=== PATIENT | female | born 1995 | race Hispanic/Latino ===

== ENCOUNTER 2021-12-14 08:25 | Observation (INO) | payer MEDICAID ==
[2021-12-12 13:11] LABS: BASOPHILS % (AUTO) 0.3 % (0.0-5.0); EOSINOPHILS % (AUTO) 0.8 % (0.0-8.0); HEMATOCRIT 39.7 % (36-48); LYMPHOCYTES % (AUTO) 32.2 % (21.0-51.0); MEAN CORPUSCULAR HEMOGLOBIN 28.2 pg (27.0-33.0); MEAN CORPUSCULAR HGB CONC 31.5 g/dL (32.0-36.0); MEAN CORPUSCULAR VOLUME 89.6 fL (79-99); MONOCYTES % (AUTO) 5.7 % (3.0-13.0); NEUTROPHILS % (AUTO) 60.8 % (40.0-77.0); PLATELET COUNT (AUTO) 266 K/uL (130-400); RED BLOOD CELL COUNT(AUTO) 4.43 MIL/uL (4.00-5.50); RED CELL DISTRIBUTION WIDTH 13.1 % (11.0-15.5); WHITE BLOOD COUNT (AUTO) 6.3 K/uL (4.8-10.8)
[2021-12-12 13:23] LABS: CREATININE 0.6 mg/dL (0.5-1.5); INR 0.95 (0.85-1.15); POTASSIUM 4.3 mmol/L (3.5-5.1); PROTHROMBIN TIME 10.4 SEC (9.6-11.6)
[2021-12-12 13:25] LABS: PARTIAL THROMBOPLASTIN TIME 27.1 SEC (26.3-35.5)
[2021-12-13 11:39] VITALS: BP 112/61
[~2021-12-14] VITALS: Ht 160 cm; Wt 50.3 kg
[2021-12-14] VITALS (25 sets, daily range): BP systolic 72–116; BP diastolic 21–72
[~2021-12-14 08:25] MED LIST: 0.9%NACL 1000ML 1,000 ML IV SCH; DILT120C92 PO; LORA2TAB80 PO
[2021-12-14] MEDS ORDERED: LIDOCAINE HCL 400MG/20ML VIAL ONE (13:16)
[2021-12-14] MEDS ORDERED: HEPARIN 10,000 UNIT/10ML (1,000 UNIT/ML) VIAL ONE (13:16)
[2021-12-14] MEDS ORDERED: MIDAZOLAM HCL 1 MG/ML 2ML VIAL ONE ×5 (13:17→16:45)
[2021-12-14] MEDS ORDERED: MEPERIDINE-PF 25 MG/ML SYG ONE (13:18)
[2021-12-14] MEDS ORDERED: FENTANYL CITRATE PF 50 MCG/1 ML 2ML VIAL ONE ×2 (13:38→16:40)
[2021-12-14] MEDS ORDERED: DiphenhydrAMINE HCL 50 MG/ML VIAL ONE (14:25)
[2021-12-14] MEDS ORDERED: ISOPROTERENOL HCL 0.2 MG/ML AMP/VIAL/BAG ONE (15:03)
[2021-12-14] MEDS ORDERED: PROPOFOL 1000 MG/100 ML 100 ML IV ONE (15:22)
[2021-12-14] MEDS ORDERED: FAMOTIDINE 20MG VIAL IV ONE (15:22)
[2021-12-14] MEDS ORDERED: PHENYLEPHRINE HCL 10 MG/ML 1ML VIAL IV ONE (15:46)
[2021-12-14] MEDS ORDERED: MIDAZOLAM HCL 1 MG/ML 2ML VIAL IV ONE (16:00)
[2021-12-14] MEDS ORDERED: PROPOFOL 10 MG/ML 20ML VIAL IV ONE ×2 (16:59→17:40)
[2021-12-14] MEDS ORDERED: ONDANSETRON 4MG INJ IVP PRN (22:00)
[2021-12-15 00:20] VITALS: BP 93/59
[2021-12-15 01:20] VITALS: BP 92/53
[2021-12-15 03:46] VITALS: BP 96/54
[2021-12-15 07:00] VITALS: BP 102/62
[2021-12-15 14:40] VITALS: BP 106/78
== END 2021-12-15 14:45 | disposition home or self-care (01) ==
LOC: DAH 08:25 → 2DH 08:26
PROVIDERS: ADMIT Internal Medicine Cardiovascular Disease; ATTEND Internal Medicine Cardiovascular Disease
DX: I47.1 Supraventricular tachycardia (principal); F41.9 Anxiety disorder, unspecified; K21.9 Gastro-esophageal reflux disease without esophagitis; Z79.899 Other long term (current) drug therapy
CPT/HCPCS: 36415; 80048; 84703; 85025; 85610; 85730; 93005 ×2; 93623; 93653; A4215; A4216; A4221; A4222; A4223 ×3; A4606; A4649 ×2; A4663; C1730 ×4; C1731; C1732; C1893; C1894 ×5; G0378 ×17; J1200; J1644 ×3; J2250 ×6; J2370; J3010 ×2; J3490 ×5; J7030; S0028; 99156; 99157; J2175; J2704

== ENCOUNTER 2021-12-18 15:11 | Emergency (ER) | payer MEDICAID ==
[~2021-12-18] VITALS: Ht 160 cm; Wt 50.3 kg
[~2021-12-18 15:11] MED LIST changes: -0.9%NACL 1000ML 1,000 ML IV SCH; -DILT120C92 PO
[2021-12-18 15:41] LABS: BASOPHILS % (AUTO) 0.3 % (0.0-5.0); EOSINOPHILS % (AUTO) 0.3 % (0.0-8.0); HEMATOCRIT 37.1 % (36-48); MEAN CORPUSCULAR HEMOGLOBIN 28.8 pg (27.0-33.0); MEAN CORPUSCULAR HGB CONC 33.2 g/dL (32.0-36.0); MEAN CORPUSCULAR VOLUME 86.9 fL (79-99); MONOCYTES % (AUTO) 6.5 % (3.0-13.0); NEUTROPHILS % (AUTO) 69.5 % (40.0-77.0); PLATELET COUNT (AUTO) 228 K/uL (130-400); RED BLOOD CELL COUNT(AUTO) 4.27 MIL/uL (4.00-5.50); RED CELL DISTRIBUTION WIDTH 12.7 % (11.0-15.5); WHITE BLOOD COUNT (AUTO) 7.1 K/uL (4.8-10.8)
[2021-12-18 15:49] LABS: CREATININE 0.7 mg/dL (0.5-1.5); POTASSIUM 3.8 mmol/L (3.5-5.1)
[2021-12-18 15:59] LABS: ALBUMIN 3.7 g/dL (3.5-5.0); BILIRUBIN,TOTAL 0.3 mg/dL (0.2-1.0); MAGNESIUM 1.6 mg/dL (1.80-2.40); TOTAL PROTEIN, SERUM 7.6 g/dL (6.0-8.3)
[2021-12-18] MEDS ORDERED: MAGNESIUM OXIDE 400 MG TABLET PO SCH (18:00)
[2021-12-18 18:48] VITALS: BP 103/57
== END 2021-12-18 18:51 | disposition home or self-care (01) ==
LOC: EDH 15:11
DX: E83.42 Hypomagnesemia (principal); R00.0 Tachycardia, unspecified; Z88.5 Allergy status to narcotic agent; Z90.49 Acquired absence of other specified parts of digestive tract
CPT/HCPCS: 36415; 80053; 83735; 84484; 85025; 93005

== ENCOUNTER 2022-01-05 21:35 | Emergency (ER) | payer MEDICAID ==
[~2022-01-05] VITALS: Ht 160 cm; Wt 52.2 kg
[2022-01-05 22:16] LABS: BASOPHILS % (AUTO) 0.4 % (0.0-5.0); EOSINOPHILS % (AUTO) 0.7 % (0.0-8.0); HEMATOCRIT 37.1 % (36-48); LYMPHOCYTES % (AUTO) 39.8 % (21.0-51.0); MEAN CORPUSCULAR HEMOGLOBIN 28.4 pg (27.0-33.0); MEAN CORPUSCULAR HGB CONC 32.9 g/dL (32.0-36.0); MEAN CORPUSCULAR VOLUME 86.5 fL (79-99); MONOCYTES % (AUTO) 10.2 % (3.0-13.0); NEUTROPHILS % (AUTO) 48.7 % (40.0-77.0); PLATELET COUNT (AUTO) 264 K/uL (130-400); RED BLOOD CELL COUNT(AUTO) 4.29 MIL/uL (4.00-5.50); RED CELL DISTRIBUTION WIDTH 13.1 % (11.0-15.5); WHITE BLOOD COUNT (AUTO) 5.7 K/uL (4.8-10.8)
[2022-01-05 22:23] LABS: CREATININE 0.6 mg/dL (0.5-1.5); MAGNESIUM 2.1 mg/dL (1.80-2.40); POTASSIUM 3.6 mmol/L (3.5-5.1)
[2022-01-05 23:11] VITALS: BP 108/65
== END 2022-01-05 23:22 | disposition home or self-care (01) ==
LOC: EDH 21:35
DX: R00.2 Palpitations (principal); M54.6 Pain in thoracic spine; M54.2 Cervicalgia; F41.9 Anxiety disorder, unspecified; Z88.5 Allergy status to narcotic agent; Z90.49 Acquired absence of other specified parts of digestive tract
CPT/HCPCS: 36415; 80048; 83735; 84484; 85025; 93005

== ENCOUNTER → 2023-02-20 | Outpatient (CLI) | payer MEDICAID | END | disposition home or self-care (01) | LOC: SHCH 12:52 | PROVIDERS: ATTEND Internal Medicine Cardiovascular Disease | DX: R00.0 Tachycardia, unspecified (principal) | CPT/HCPCS: 93306 ==

== ENCOUNTER 2023-05-07 09:09 | Day surgery (SDC) | payer MEDICAID ==
[2023-05-07] VITALS (13 sets, daily range): BP systolic 95–114; BP diastolic 52–73; PULSE 57–79; RESP 14–19
[~2023-05-07] VITALS: Ht 160 cm; Wt 65.8 kg
[~2023-05-07 09:09] MED LIST changes: +APIX5TAB PO; +FLUD0.1T2 PO; -LORA2TAB80 PO; +POTA10CA85 PO; +PROP60CA2 PO
[2023-05-07] MEDS ORDERED: PROPOFOL 10 MG/ML 20ML VIAL IV ONE (11:33)
[2023-05-07] MEDS ORDERED: EPHEDRINE SULFATE 50 MG/ML AMPULE ONE (11:33)
[2023-05-07] MEDS ORDERED: MIDAZOLAM HCL 1 MG/ML 2ML VIAL ONE (11:34)
[2023-05-07] MEDS ORDERED: GLYCOPYRROLATE 1 MG/5 ML SYRINGE ONE (11:34)
== END 2023-05-07 13:15 | disposition home or self-care (01) ==
LOC: ENDO 09:09 → DAH 09:09 → ENDO 13:15
PROVIDERS: ATTEND Internal Medicine Gastroenterology
DX: R10.12 Left upper quadrant pain (principal); R14.0 Abdominal distension (gaseous); R13.10 Dysphagia, unspecified; K29.50 Unspecified chronic gastritis without bleeding; K21.00 Gastro-esophageal reflux disease with esophagitis, without bleeding; D50.9 Iron deficiency anemia, unspecified; K76.0 Fatty (change of) liver, not elsewhere classified; I51.9 Heart disease, unspecified; Z79.899 Other long term (current) drug therapy; Z79.01 Long term (current) use of anticoagulants; Z90.49 Acquired absence of other specified parts of digestive tract; Z98.890 Other specified postprocedural states
CPT/HCPCS: 81025; 43239; J3490 ×3; J2250; A4620; A4215 ×2; A4223; A7002; A4222; A4221; A4663; A4216; J7030; A4606; J2704

== ENCOUNTER 2023-06-02 17:36 | Emergency (ER) | payer MEDICAID ==
[~2023-06-02] VITALS: Ht 160 cm; Wt 64.9 kg
[2023-06-02 18:29] LABS: BASOPHILS # (AUTO) 0.02 K/uL (0.00-0.20); BASOPHILS % (AUTO) 0.3 % (0.0-5.0); EOSINOPHILS # (AUTO) 0.02 K/uL (0.00-0.70); EOSINOPHILS % (AUTO) 0.3 % (0.0-8.0); HEMATOCRIT 35.5 % (36-48); IMMATURE GRANULOCYTE ABSOLUTE 0.01 K/uL (0-1); LYMPHOCYTES # (AUTO) 1.6 K/uL (1.0-4.8); LYMPHOCYTES % (AUTO) 26.4 % (21.0-51.0); MEAN CORPUSCULAR HEMOGLOBIN 29.2 pg (27.0-33.0); MEAN CORPUSCULAR HGB CONC 33.5 g/dL (32.0-36.0); MEAN CORPUSCULAR VOLUME 87.2 fL (79-99); MONOCYTES # (AUTO) 0.3 K/uL (0.1-1.0); NEUTROPHILS # (AUTO) 4.1 K/uL (1.8-7.7); NEUTROPHILS % (AUTO) 67.8 % (40.0-77.0); PLATELET COUNT (AUTO) 300 K/uL (130-400); RED BLOOD CELL COUNT(AUTO) 4.07 MIL/uL (4.00-5.50)
[2023-06-02 18:39] LABS: CREATININE 0.8 mg/dL (0.5-1.5); POTASSIUM 3.4 mmol/L (3.5-5.1)
[2023-06-02 18:44] LABS: BILIRUBIN,TOTAL 0.3 mg/dL (0.2-1.0)
[2023-06-02] MEDS ORDERED: POTASSIUM BICARB/CIT AC 25 MEQ TABLET.EFF PO ONE (19:00)
[2023-06-02 19:08] LABS: ADD UA MICROSCOPIC YES; APPEARANCE,URINE CLEAR (CLEAR); BILIRUBIN,URINE NEGATIVE (NEGATIVE); COLOR,URINE LIGHT-YELLOW (YELLOW); GLUCOSE, URINE (UA) NEGATIVE (NEGATIVE); KETONES,URINE 10 mg/dL (NEGATIVE); LEUKOCYTE ESTERASE ,URINE NEGATIVE Leu/uL (NEGATIVE); NITRATE,URINE NEGATIVE (NEGATIVE); OCCULT BLOOD,URINE SMALL (NEGATIVE); PH,URINE 6.5 (5.0-8.0); PROTEIN,URINE NEGATIVE (NEGATIVE); UROBILINOGEN,URINE 0.2 mg/dL (0.2-1.0)
[2023-06-02 19:11] LABS: BACTERIA,URINE RARE /HPF (None Seen); MUCUS,URINE RARE LPF (None Seen); SQUAMOUS EPITHELIAL CELL,UR MOD /HPF (0-2); WBC,URINE 0-1 /HPF (0-1)
[2023-06-02 19:16] LABS: HCG,QUALITATIVE URINE NEGATIVE (NEGATIVE)
[2023-06-02 19:37] VITALS: BP 127/62; PULSE 90; RESP 16; O2SAT 99
[2023-06-02] MEDS ORDERED: FLUT16H NASAL (20:30)
[2023-06-02] MEDS ORDERED: AZIT250T9 PO (20:30)
[2023-06-02] MEDS ORDERED: ACETAMINOPHEN 500 MG TABLET PO ONE (21:00)
== END 2023-06-02 21:21 | disposition home or self-care (01) ==
LOC: EDH 17:41
DX: G43.909 Migraine, unspecified, not intractable, without status migrainosus (principal); J01.90 Acute sinusitis, unspecified; Z79.899 Other long term (current) drug therapy; Z98.890 Other specified postprocedural states; Z90.49 Acquired absence of other specified parts of digestive tract; Z88.8 Allergy status to other drugs, medicaments and biological substances
CPT/HCPCS: 36415; 71045; 80053; 81001; 81025; 84484; 85025; 93005

== ENCOUNTER → 2023-11-03 | Outpatient (CLI) | payer MEDICAID ==
[~2023-11-03] MED LIST changes: +AZIT250T9 PO; +FLUT16H NASAL; -POTA10CA85 PO; +POTA10CA95 PO
== END | disposition home or self-care (01) ==
LOC: SHCH 09:18
PROVIDERS: ATTEND Internal Medicine Cardiovascular Disease
DX: R00.2 Palpitations (principal); R20.2 Paresthesia of skin; R51.9 Headache, unspecified; Z79.899 Other long term (current) drug therapy
CPT/HCPCS: 93880

== ENCOUNTER → 2024-01-28 | Outpatient (CLI) | payer MEDICAID ==
[~2024-01-28] MED LIST changes: +IOHEXOL 350 MG/ML 100ML INFUS..BTL IV ONE
== END | disposition home or self-care (01) ==
LOC: RAH 13:17
PROVIDERS: ATTEND Internal Medicine Cardiovascular Disease
DX: I47.10 Supraventricular tachycardia, unspecified (principal)
CPT/HCPCS: 75574; Q9967

== ENCOUNTER 2024-08-13 12:18 | Emergency (ER) | payer MEDICAID ==
[~2024-08-13] VITALS: Ht 160 cm; Wt 74.4 kg
[~2024-08-13 12:18] MED LIST changes: -IOHEXOL 350 MG/ML 100ML INFUS..BTL IV ONE
--- NOTE | 2024-08-13 13:12 | EKG ---
[facility] [place] Test Date: 2024-08-13 Test Time: 12:50:55 Pat Name: GT LAWSON Department: ED Room: Gender: F Nursing Aide: [id number] : 1995 Requested By: KATIE ROSALES Order Number: [id number] Reading MD: Sherry Chester Measurements Intervals [place] Rate: 99 P: 55 ME: 144 QRS: 16 QRSD: 75 T: 37 QT: 336 QTc: 432 Interpretive Statements Sinus rhythm Compared to ECG 06/02/2023 18:24:31 No significant changes Electronically Signed On 08-14-2024 08:45:51 SLITTER PROCESSED FILM by Sherry Chester Please click the below link to view image of tracing.
[2024-08-13] MEDS: 0.9%NACL 1000ML 1,000 ML IV ONE (13:16)
[2024-08-13 13:42] LABS: BASOPHILS # (AUTO) 0.02 K/uL (0.00-0.20); BASOPHILS % (AUTO) 0.2 % (0.0-5.0); EOSINOPHILS # (AUTO) 0.03 K/uL (0.00-0.70); EOSINOPHILS % (AUTO) 0.4 % (0.0-8.0); HEMATOCRIT 33.5 % (36-48); IMMATURE GRANULOCYTE ABSOLUTE 0.13 K/uL (0-1); LYMPHOCYTES # (AUTO) 1.3 K/uL (1.0-4.8); MEAN CORPUSCULAR HEMOGLOBIN 30.4 pg (27.0-33.0); MEAN CORPUSCULAR HGB CONC 33.4 g/dL (32.0-36.0); MEAN CORPUSCULAR VOLUME 90.8 fL (79-99); MONOCYTES # (AUTO) 0.5 K/uL (0.1-1.0); MONOCYTES % (AUTO) 5.6 % (3.0-13.0); NEUTROPHILS # (AUTO) 6.2 K/uL (1.8-7.7); NEUTROPHILS % (AUTO) 76.2 % (40.0-77.0); NUCLEATED RED BLOOD CELLS 0.2 % (0.0-0.19); PLATELET COUNT (AUTO) 266 K/uL (130-400); RED BLOOD CELL COUNT(AUTO) 3.69 MIL/uL (4.00-5.50); RED CELL DISTRIBUTION WIDTH 14.8 % (11.0-15.5); WHITE BLOOD COUNT (AUTO) 8.2 K/uL (4.8-10.8)
[2024-08-13 13:51] LABS: CARBON DIOXIDE 26 mmol/L (21-32); CHLORIDE 104 mmol/L (101-111); CREATININE 0.4 mg/dL (0.5-1.0); GLOMERULAR FILTR. RATE CALC 140 mL/min (>90); GLUCOSE,RANDOM 94 mg/dL (70-105); POTASSIUM 3.8 mmol/L (3.5-5.1); SODIUM SERUM 137 mmol/L (136-145); UREA NITROGEN, BLOOD 5 mg/dL (7-18)
[2024-08-13 13:57] LABS: CREATINE KINASE, TOTAL 15 U/L (21-232)
--- NOTE | 2024-08-13 13:57 | ERN ---
General Chief Complaint: Palpitations Stated Complaint: FAST HEART RATE Time Seen by MD: 12:19 History of Present Illness Initial Comments 28-year-old female, history of pulmonary embolism in the past, history of SVT, presents for episode of tachycardia. She is 26 weeks , . Patient was in the imaging center attached this facility pending an echocardiogram in the waiting room, she felt a sudden onset of tachycardia and dizziness with near syncope. She found that her heart rate was 160 by self recording. The episode has since resolved. She comes here without complaint for evaluation. She takes propranolol 80 mg extended release daily. She also takes Lovenox injections. She denies any recent fevers, chills, chest pains, dyspnea, vomiting, abdominal pain diarrhea or dysuria. Allergies: Coded Allergies: meperidine (Verified Allergy, Unknown, 12/12/21) metoclopramide (Verified Allergy, Unknown, 12/12/21) shellfish derived (Unverified Allergy, Unknown, 05/07/23) Home Meds Active Scripts Fluticasone Propionate (Flonase Nasal [place]) 50 Mcg/Actuation [place], 50 MCG NASAL DAILY PRN for NASAL CONGESTION for 10 Days, #1 SPRAY Prov:SIMONE LANDIS 06/02/23 Azithromycin (Azithromycin) 250 Mg Tablet, 250 MG PO DAILY, #6 TAB Take 2 now then 1 daily until complete. Prov:SIMONE LANDIS 06/02/23 Reported Medications Potassium Chloride (Potassium Chloride) 10 Meq Capsule.er, 10 MEQ PO BID, CAP 05/06/23 Fludrocortisone Acetate (Fludrocortisone Acetate) 0.1 Mg Tablet, 0.1 MG PO BID, TAB 05/06/23 Propranolol HCl (Propranolol HCl) 60 Mg Cap.sa.24h, 60 MG PO DAILY 05/06/23 Apixaban (Eliquis) 5 Mg Tablet, 5 MG PO BID, TAB 05/06/23 Past Medical History Past Medical History: Other Medical History Other: SVT, POTS,TACHYCARDIA Past Surgical History: Cholecystectomy Surgical History Other: HEART ABLASION, LIVER RESECTION Social History Social History: Negative, Other Female( History) : 4 Para: 1 Aborts: 2 ROS Dictation CONSTITUTIONAL: No chills, no fever, no weakness, no diaphoresis, no malaise. HEAD/FACE: No signs of trauma. EENT: No eye pain, no blurred vision, no tearing, no double vision, no ear pain, no ear discharge, no nose pain, no nasal congestion, no throat pain, no throat swelling, no mouth pain. RESPIRATORY: No cough, no orthopnea, no SOB, no stridor, no wheezing. CARDIOVASCULAR: Palpitations. GASTROINTESTINAL/ABDOMINAL: No abdominal pain, no constipation, no diarrhea, no nausea, no vomiting. GENITOURINARY: No abnormal discharge, no dysuria, no frequent urination, no hematuria. No complaints of pain in the genitals. MUSCULOSKELETAL: No back pain, no gout, no joint pain, no joint swelling, no muscle pain, no muscle stiffness, no neck pain. INTEGUMENTARY: No change in color, no change in hair/nails, no dryness, no lesion, no lumps, no rash. NEUROLOGICAL/PSYCH: No anxiety, not depressed, no emotional problem, no he adache, no numbness, no pre-existing deficit, no history of seizures, no tremors, no weakness. HEMATOLOGIC/LYMPHATIC: Not anemic, no history of blood clots, no apparent bleeding, no bruising, glands not swollen. All Systems Negative, Except as Noted. Physical Exam Physical Exam Dictation VITAL SIGNS: Reviewed. GENERAL APPEARANCE: Alert, oriented x3, no acute distress HEAD AND FACE: Non-traumatic. EYES: PERRL, pink conjunctivas, eyelid no trauma, anterior chamber clear. EARS: Pinnas intact and no signs of trauma or erythema. Ear canals clear and no discharge. TMs no erythema. NOSE: No discharge, no bleeding. OROPHARYNX: Mouth normal, teeth no caries, tongue pink. Pharynx clear, no erythema. Tonsils no exudates, no abscesses noted. Mucous membrane moist. NECK: Supple, non-tender, no thyromegaly, no masses, no JVD, no bruits. BREAST: Deferred. CHEST: No tenderness, no crepitus, no paradoxical movement, no retractions. LUNGS: Clear, well-ventilated, symmetric, no rales, no wheezing, no rhonchi, no stridor, good breath sounds bilaterally. HEART: Regular rate, regular rhythm, no murmur, no gallops. VASCULAR: No peripheral edema. ABDOMEN: Soft, positive bowel sounds, nondistended, no guarding, nontender, no rebound, no masses no hepatomegaly, no splenomegaly, no Mehta's sign, no hernias. RECTAL: Deferred. GENITAL: Deferred. NEUROLOGICAL: Normal speech, gross motor function intact, gross sensory function intact. MUSCULOSKELETAL: Neck nontender, full range of motion, back nontender, full range of motion. EXTREMITIES: Nontender, full range of motion. SKIN: Color pink, dry, no turgor, no rash, no lacerations, no abrasions, no contusions. LYMPHATICS: Deferred. Results Laboratory and Microbiology Lab and Micro Result Laboratory Tests Test 08/13/24 12:54 White Blood Count 8.2 K/uL (4.8-10.8) Red Blood Count 3.69 MIL/uL (4.00-5.50) L Hemoglobin 11.2 g/dL (12.0-16.0) L Hematocrit 33.5 % (36-48) L Mean Corpuscular Volume 90.8 fL (79-99) Mean Corpuscular Hemoglobin 30.4 pg (27.0-33.0) Mean Corpuscular Hemoglobin Concent 33.4 g/dL (32.0-36.0) Red Cell Distribution Width 14.8 % (11.0-15.5) Platelet Count 266 K/uL (130-400) Mean Platelet Volume 9.1 fL (7.5-10.5) Immature Granulocyte % (Auto) 1.6 % (0-1) H Neutrophils (%) (Auto) 76.2 % (40.0-77.0) Lymphocytes (%) (Auto) 16.0 % (21.0-51.0) L Monocytes (%) (Auto) 5.6 % (3.0-13.0) Eosinophils (%) (Auto) 0.4 % (0.0-8.0) Basophils (%) (Auto) 0.2 % (0.0-5.0) Neutrophils # (Auto) 6.2 K/uL (1.8-7.7) Lymphocytes # (Auto) 1.3 K/uL (1.0-4.8) Monocytes # (Auto) 0.5 K/uL (0.1-1.0) Eosinophils # (Auto) 0.03 K/uL (0.00-0.70) Basophils # (Auto) 0.02 K/uL (0.00-0.20) Absolute Immature Granulocyte (auto 0.13 K/uL (0-1) Nucleated Red Blood Cells 0.2 % (0.0-0.19) H Sodium Level 137 mmol/L (136-145) Potassium Level 3.8 mmol/L (3.5-5.1) Chloride Level 104 mmol/L (101-111) Carbon Dioxide Level 26 mmol/L (21-32) Blood Urea Nitrogen 5 mg/dL (7-18) L Creatinine 0.4 mg/dL (0.5-1.0) L Glomerular Filtration Rate Calc 140 mL/min (>90) Random Glucose 94 mg/dL (70-105) Total Calcium 9.4 mg/dL (8.5-10.1) MDM CC: Episode of SVT Historian: Patient Comorbidities: SVT, history of PE, currently Limitations by social determinants of health: None Differential diagnosis: SVT, tachycardia, PE, ACS, electrolyte abnormality, other. Initial vital signs: Stable, remained stable while in the ER. EKG: Sinus rhythm rate of 99 normal axis good R-wave progression intervals are stable no STEMI. Independently interpreted by me. Labs (independently ordered and interpreted by me ): No leukocytosis or shift. Mild anemia hemoglobin 11.2 unlikely related to the symptoms. Metabolic panel is unremarkable. CK troponin normal. Patient was monitored for about 90 minutes in the ER. No further episodes. Patient was currently taking propranolol, she was good follow up with Dr. Becerril. No concerning findings at this time. She had a brief episode of SVT which appears to have resolved on its own. We will DC. ED Course Orders Procedure Category Date Status Time Cardiac Panel LAB 08/13/24 In Process 12:38 Cbc With Differential LAB 08/13/24 Complete 12:38 Basic Metabolic Panel LAB 08/13/24 In Process 12:38 12 Lead Ekg Tracing- EKG 08/13/24 Complete Technical 12:38 0.9%Nacl 1000ml (Ns PHA 08/13/24 Complete 1000ml) 13:00 Current Medications Medications (Trade) Dose Ordered Sig/[place] Route PRN Reason Start Time Stop Time Status Last Admin Dose Admin Sodium Chloride 1,000 ml @ 0 mls/hr ONCE ONCE IV 08/13/24 13:00 08/13/24 13:01 DC 08/13/24 13:16 Vital Signs Date Time Temp Pulse Resp B/P (MAP) Pulse Ox O2 Delivery O2 Flow Rate FiO2 08/13/24 12:32 98.8 108 20 122/68 97 Room Air DX & DISP Disposition: Discharge Departure Impression: Primary Impression: SVT (supraventricular tachycardia) Condition: Stable Additional Instructions: You likely had an episode of SVT stay. It has resolved. You EKGs normal here. Your vital signs are normal here. Your blood work ( CBC, BMP, CK, troponin) is normal. Continue with your propranolol. Continue with the heparin injections. Please return to the emergency department if you have any concerns. Otherwise, continue with your outpatient workup with Dr. Becerril. Referrals: SABRA CANTRELL MD (PCP) KATIE ROSALES DO Aug 13, 2024 13:57
[2024-08-13 14:04] VITALS: BP 118/69; PULSE 88; RESP 18; TEMP 97.8; O2SAT 99
== END 2024-08-13 14:17 | disposition home or self-care (01) ==
LOC: EDH 12:18
DX: O99.412 Diseases of the circulatory system complicating pregnancy, second trimester (principal); I47.10 Supraventricular tachycardia, unspecified; Z3A.26 26 weeks gestation of pregnancy; Z79.01 Long term (current) use of anticoagulants; Z79.899 Other long term (current) drug therapy; Z86.711 Personal history of pulmonary embolism; Z88.5 Allergy status to narcotic agent; Z90.49 Acquired absence of other specified parts of digestive tract
CPT/HCPCS: 99284; 96360; 82550; 84484; 80048; 85025; 36415; 93005; J7030